=== PATIENT | male | born 1970 | race Caucasian/White ===

== ENCOUNTER 2016-07-20 01:18 | Emergency (ER) | payer BC ==
[~2016-07-20] VITALS: Ht 177.8 cm; Wt 86.4 kg
[2016-07-20 01:19] VITALS: TEMP 97.8
[2016-07-20] MEDS ORDERED: ZOFRAN8 MG PO (01:40)
[2016-07-20 01:55] LABS: ADJUSTED CALCIUM 8.9 mg/dL (8.4-10.2); ALBUMIN 4.2 gm/dL (3.5-5.0); BILIRUBIN,TOTAL 0.7 mg/dL (0.0-1.0); CALCIUM 9.1 mg/dL (8.4-10.2); CREATININE, serum 1.04 mg/dL (0.66-1.25); POTASSIUM 3.5 mmol/L (3.4-5.0); TOTAL PROTEIN 7.3 gm/dL (6.4-8.2)
[2016-07-20 03:05] LABS: PH 7 (5-8); SQUAMOUS EPITHELIAL None Seen /hpf; URINE APPEARANCE Cloudy; URINE BACTERIA None Seen /hpf; URINE BILIRUBIN Negative (NEGATIVE); URINE BLOOD Negative (NEGATIVE); URINE COLOR Yellow; URINE GLUCOSE Negative (NEGATIVE); URINE KETONE 1+ (NEGATIVE); URINE RBC 0-2 /hpf
[2016-07-20 03:06] LABS: URINE WBC 0-2 /hpf
[2016-07-20 03:50] VITALS: BP 141/84; PULSE 54
== END 2016-07-20 03:50 | disposition home or self-care (01) ==
LOC: COL.ER 01:18
PROVIDERS: Emergency Medicine
DX: R10.13 Epigastric pain (principal); R11.2 Nausea with vomiting, unspecified; R63.0 Anorexia
CPT/HCPCS: C9113; J1170; J1885; J2175; J2405; J7030

== ENCOUNTER 2016-07-23 05:21 | Observation (INO) | payer BC ==
[2016-07-23] VITALS (9 sets, daily range): BP systolic 119–132; BP diastolic 63–91; PULSE 57–83; TEMP 97–99
[~2016-07-23] VITALS: Ht 177.8 cm; Wt 84.5 kg
[~2016-07-23 05:21] MED LIST: ZOFRAN8 MG PO
[2016-07-23 06:08] LABS: BASO % 0.4 % (0.0-2.0); EOS # 0.2 (0.0-0.7); EOS % 2.2 % (0-4.0); GRAN # 5.9 (1.4-6.5); GRAN % 72.5 % (42.2-75.2); HEMATOCRIT 38.7 % (42.0-52.0); HEMOGLOBIN 12.9 g/dl (13.5-18.0); LYMPH # 1.3 (1.2-3.4); LYMPH % 15.7 % (20.0-51.0); MEAN CELL VOLUME 84 fl (80.0-100.0); MEAN CORPUSCULAR HEMOGLOBIN 28 pg (27.0-31.0); MEAN CORPUSCULAR HGB CONC 33 g/dl (33.0-37.0); MEAN PLATELET VOLUME 10.3 fl (7.4-10.4); MONO # 0.7 (0.1-0.6); MONO % 8.8 % (1.7-9.3); PLATELET COUNT 241 K/mm3 (130-400); RED BLOOD COUNT 4.63 M/mm3 (4.20-5.60); REDCELL DISTRIBUTION WIDTH-CV 12.7 % (11.5-14.5); WHITE BLOOD COUNT 8.2 K/mm3 (4.8-10.8)
[2016-07-23 06:21] LABS: ADJUSTED CALCIUM 8.7 mg/dL (8.4-10.2); ALBUMIN 3.8 gm/dL (3.5-5.0); BILIRUBIN,TOTAL 0.6 mg/dL (0.0-1.0); CALCIUM 8.5 mg/dL (8.4-10.2); CREATININE, serum 0.97 mg/dL (0.66-1.25)
[2016-07-23 06:53] LABS: PH 6 (5-8); SQUAMOUS EPITHELIAL None Seen /hpf; URINE APPEARANCE Clear; URINE BACTERIA None Seen /hpf; URINE BILIRUBIN Negative (NEGATIVE); URINE BLOOD Negative (NEGATIVE); URINE COLOR Yellow; URINE GLUCOSE Negative (NEGATIVE); URINE KETONE Negative (NEGATIVE); URINE RBC 0-2 /hpf; URINE WBC 0-2 /hpf
[2016-07-24 00:15] VITALS: BP 126/72; PULSE 82; TEMP 98.5
[2016-07-24 02:40] VITALS: BP 118/57; PULSE 69; TEMP 98.2
[2016-07-24 05:46] VITALS: BP 112/63; PULSE 73; TEMP 98.2
== END 2016-07-24 11:23 | disposition home or self-care (01) ==
LOC: COL.ER 05:21 → SURG 08:13
PROVIDERS: Emergency Medicine
DX: K81.0 Acute cholecystitis (principal); K42.9 Umbilical hernia without obstruction or gangrene; D64.9 Anemia, unspecified
CPT/HCPCS: G0378; J0360; J1100; J1170; J1200; J1956; J2405; J2704; J2710; J2765; J3010; J7030; Q9967

== ENCOUNTER 2016-10-16 08:31 | Inpatient (IN) | payer BC ==
[~2016-10-16] VITALS: Ht 175.3 cm; Wt 73.6 kg
[2016-10-23] VITALS (9 sets, daily range): BP systolic 109–134; BP diastolic 65–84; PULSE 70–93; TEMP 97.4–98.5
[2016-10-23] MEDS ORDERED: MULTI VITAMINS1 TAB PO (08:26)
[2016-10-23] MEDS ORDERED: ADVIL200 MG PO (08:27)
[2016-10-24 01:51] VITALS: BP 107/64; PULSE 85; TEMP 99.3
[2016-10-24 05:37] LABS: HEMOGLOBIN 9.5 g/dl (13.5-18.0)
[2016-10-24 05:41] LABS: CALCIUM 7.8 mg/dL (8.4-10.2); CREATININE, serum 1.08 mg/dL (0.66-1.25); POTASSIUM 3.9 mmol/L (3.4-5.0)
[2016-10-24 05:45] VITALS: BP 116/63; PULSE 80; TEMP 99.9
[2016-10-24 14:43] VITALS: BP 104/65; PULSE 80; TEMP 98.7
[2016-10-24 20:51] VITALS: BP 130/69; PULSE 93; TEMP 100
[2016-10-25 00:28] VITALS: BP 116/72; PULSE 102; TEMP 99.3
[2016-10-25 03:52] VITALS: BP 120/75; PULSE 87; TEMP 98.3
[2016-10-25 07:58] LABS: BASO % 0.2 % (0.0-2.0); GRAN # 10.2 (1.4-6.5); GRAN % 85.3 % (42.2-75.2); HEMATOCRIT 30.2 % (42.0-52.0); HEMOGLOBIN 9.6 g/dl (13.5-18.0); LYMPH # 0.9 (1.2-3.4); LYMPH % 7.7 % (20.0-51.0); MEAN CELL VOLUME 79 fl (80.0-100.0); MEAN CORPUSCULAR HEMOGLOBIN 25 pg (27.0-31.0); MEAN CORPUSCULAR HGB CONC 32 g/dl (33.0-37.0); MEAN PLATELET VOLUME 9.5 fl (7.4-10.4); MONO # 0.7 (0.1-0.6); PLATELET COUNT 310 K/mm3 (130-400); RED BLOOD COUNT 3.83 M/mm3 (4.20-5.60); REDCELL DISTRIBUTION WIDTH-CV 13.4 % (11.5-14.5); WHITE BLOOD COUNT 11.9 K/mm3 (4.8-10.8)
[2016-10-25 08:06] LABS: CREATININE, serum 0.94 mg/dL (0.66-1.25); POTASSIUM 4.1 mmol/L (3.4-5.0)
[2016-10-25 10:05] VITALS: BP 129/75; PULSE 85; TEMP 98.4
[2016-10-25 14:30] VITALS: BP 134/85; PULSE 84; TEMP 98.2
[2016-10-25 18:33] VITALS: BP 137/79; PULSE 87; TEMP 98.7
[2016-10-25 19:45] VITALS: BP 123/80; PULSE 82; TEMP 98.2
[2016-10-26] VITALS (7 sets, daily range): BP systolic 127–135; BP diastolic 77–88; PULSE 62–89; TEMP 97.8–98.3
[2016-10-27 01:46] VITALS: BP 118/74; PULSE 74; TEMP 98.1
[2016-10-27 05:38] VITALS: BP 121/86; PULSE 88; TEMP 98.4
[2016-10-27 05:38] LABS: BASO % 0.1 % (0.0-2.0); EOS # 0.1 (0.0-0.7); EOS % 0.8 % (0-4.0); GRAN # 9.1 (1.4-6.5); GRAN % 87.2 % (42.2-75.2); LYMPH # 0.7 (1.2-3.4); LYMPH % 6.6 % (20.0-51.0); MEAN CELL VOLUME 79 fl (80.0-100.0); MEAN CORPUSCULAR HGB CONC 32 g/dl (33.0-37.0); MEAN PLATELET VOLUME 9.9 fl (7.4-10.4); MONO # 0.5 (0.1-0.6); MONO % 4.7 % (1.7-9.3); PLATELET COUNT 344 K/mm3 (130-400); RED BLOOD COUNT 3.86 M/mm3 (4.20-5.60); REDCELL DISTRIBUTION WIDTH-CV 13.2 % (11.5-14.5); WHITE BLOOD COUNT 10.4 K/mm3 (4.8-10.8)
[2016-10-27 05:43] LABS: HEMATOCRIT 30.5 % (42.0-52.0); HEMOGLOBIN 9.6 g/dl (13.5-18.0); MEAN CORPUSCULAR HEMOGLOBIN 25 pg (27.0-31.0)
[2016-10-27 05:48] LABS: CALCIUM 8.3 mg/dL (8.4-10.2); CREATININE, serum 0.8 mg/dL (0.66-1.25); POTASSIUM 3.3 mmol/L (3.4-5.0)
[2016-10-27 09:29] VITALS: BP 134/86; PULSE 71; TEMP 98.5
[2016-10-27 14:01] VITALS: BP 125/77; PULSE 87; TEMP 98.2
[2016-10-27 17:28] VITALS: BP 134/84; PULSE 86; TEMP 98.6
[2016-10-27 22:21] VITALS: BP 130/85; PULSE 84; TEMP 98.7
[2016-10-28 01:53] VITALS: BP 115/65; PULSE 65; TEMP 98.4
[2016-10-28 04:58] VITALS: BP 133/81; PULSE 83; TEMP 98.1
[2016-10-28 09:34] VITALS: BP 135/80; PULSE 75; TEMP 98.3
[2016-10-28 12:14] LABS: ADJUSTED CALCIUM 9.4 mg/dL (8.4-10.2); ALBUMIN 2.8 gm/dL (3.5-5.0); BILIRUBIN,TOTAL 0.6 mg/dL (0.0-1.0); CALCIUM 8.4 mg/dL (8.4-10.2); CREATININE, serum 0.73 mg/dL (0.66-1.25); POTASSIUM 3.4 mmol/L (3.4-5.0); TOTAL PROTEIN 6.1 gm/dL (6.4-8.2)
[2016-10-28 13:38] VITALS: BP 142/88; PULSE 77; TEMP 98.2
[2016-10-28 17:53] VITALS: BP 135/87; PULSE 75; TEMP 98.2
[2016-10-28 22:33] VITALS: BP 144/88; PULSE 74; TEMP 98.6
[2016-10-29 02:15] VITALS: BP 135/89; PULSE 65; TEMP 98.2
[2016-10-29 06:49] LABS: CALCIUM 8.3 mg/dL (8.4-10.2); CREATININE, serum 0.7 mg/dL (0.66-1.25); MAGNESIUM 2.3 mg/dL (1.6-2.3); PHOSPHOROUS 3.4 mg/dL (2.5-4.5); POTASSIUM 3.6 mmol/L (3.4-5.0)
[2016-10-29 07:10] VITALS: BP 131/81; PULSE 72; TEMP 98.3
[2016-10-29 09:22] VITALS: BP 133/83; PULSE 75; TEMP 98.3
[2016-10-29 13:25] VITALS: BP 152/83; PULSE 67; TEMP 98
[2016-10-29 17:58] VITALS: BP 134/89; PULSE 85; TEMP 98.5
[2016-10-29 22:32] VITALS: BP 140/90; PULSE 70; TEMP 98.9
[2016-10-30 04:59] VITALS: BP 135/85; PULSE 70; TEMP 98.6
[2016-10-30 06:55] LABS: CALCIUM 8.2 mg/dL (8.4-10.2); CREATININE, serum 0.64 mg/dL (0.66-1.25); MAGNESIUM 2.4 mg/dL (1.6-2.3); PHOSPHOROUS 3.8 mg/dL (2.5-4.5); POTASSIUM 3.6 mmol/L (3.4-5.0)
[2016-10-30 09:17] VITALS: BP 135/85; PULSE 71; TEMP 98.2
[2016-10-30 13:41] VITALS: BP 130/83; PULSE 72; TEMP 98
[2016-10-30 18:00] VITALS: BP 127/77; PULSE 73; TEMP 98.8
[2016-10-30 22:00] VITALS: BP 136/82; PULSE 68; TEMP 98.4
[2016-10-31 04:56] VITALS: BP 139/81; PULSE 67
[2016-10-31 06:17] LABS: BASO % 0.4 % (0.0-2.0); EOS # 0.2 (0.0-0.7); EOS % 2.6 % (0-4.0); GRAN # 5.6 (1.4-6.5); GRAN % 77.7 % (42.2-75.2); LYMPH # 0.9 (1.2-3.4); LYMPH % 11.9 % (20.0-51.0); MEAN CELL VOLUME 78 fl (80.0-100.0); MEAN CORPUSCULAR HGB CONC 32 g/dl (33.0-37.0); MEAN PLATELET VOLUME 9.3 fl (7.4-10.4); MONO # 0.4 (0.1-0.6); MONO % 6.1 % (1.7-9.3); PLATELET COUNT 320 K/mm3 (130-400); RED BLOOD COUNT 3.65 M/mm3 (4.20-5.60); REDCELL DISTRIBUTION WIDTH-CV 13.7 % (11.5-14.5); WHITE BLOOD COUNT 7.2 K/mm3 (4.8-10.8)
[2016-10-31 06:19] LABS: HEMATOCRIT 28.5 % (42.0-52.0); MEAN CORPUSCULAR HEMOGLOBIN 25 pg (27.0-31.0)
[2016-10-31 06:33] LABS: ALBUMIN 2.8 gm/dL (3.5-5.0); CALCIUM 8.3 mg/dL (8.4-10.2); CREATININE, serum 0.61 mg/dL (0.66-1.25); MAGNESIUM 2.1 mg/dL (1.6-2.3); PHOSPHOROUS 4.1 mg/dL (2.5-4.5); POTASSIUM 3.6 mmol/L (3.4-5.0)
[2016-10-31 10:14] VITALS: BP 130/91; PULSE 79; TEMP 97.1
[2016-10-31 14:07] VITALS: BP 125/79; PULSE 86; TEMP 98.4
[2016-10-31 17:33] VITALS: BP 126/80; PULSE 77; TEMP 98.5
[2016-11-01 02:43] VITALS: BP 128/86; PULSE 67; TEMP 98.4
[2016-11-01 06:32] VITALS: BP 125/77; PULSE 70; TEMP 98.5
[2016-11-01 07:10] LABS: BASO % 0.3 % (0.0-2.0); EOS # 0.2 (0.0-0.7); EOS % 2.6 % (0-4.0); GRAN # 5.1 (1.4-6.5); GRAN % 72.2 % (42.2-75.2); LYMPH # 1.1 (1.2-3.4); LYMPH % 15.4 % (20.0-51.0); MEAN CELL VOLUME 79 fl (80.0-100.0); MEAN CORPUSCULAR HGB CONC 31 g/dl (33.0-37.0); MEAN PLATELET VOLUME 9.9 fl (7.4-10.4); MONO # 0.6 (0.1-0.6); MONO % 8.1 % (1.7-9.3); PLATELET COUNT 320 K/mm3 (130-400); RED BLOOD COUNT 3.58 M/mm3 (4.20-5.60); REDCELL DISTRIBUTION WIDTH-CV 13.6 % (11.5-14.5)
[2016-11-01 07:22] LABS: HEMATOCRIT 28.1 % (42.0-52.0); HEMOGLOBIN 8.8 g/dl (13.5-18.0); MEAN CORPUSCULAR HEMOGLOBIN 25 pg (27.0-31.0)
[2016-11-01 07:25] LABS: CALCIUM 8.4 mg/dL (8.4-10.2); CREATININE, serum 0.63 mg/dL (0.66-1.25); MAGNESIUM 1.9 mg/dL (1.6-2.3); PHOSPHOROUS 4.1 mg/dL (2.5-4.5)
[2016-11-01 09:53] VITALS: BP 129/81; PULSE 71; TEMP 97.3
[2016-11-01 13:52] VITALS: BP 137/99; PULSE 65; TEMP 97.4
[2016-11-01 16:46] VITALS: BP 147/84; PULSE 72; TEMP 97.7
[2016-11-01 22:25] VITALS: BP 119/75; PULSE 78; TEMP 98.4
[2016-11-02 06:09] VITALS: BP 128/74; PULSE 90; TEMP 98.5
[2016-11-02 06:35] LABS: CALCIUM 8.7 mg/dL (8.4-10.2); CREATININE, serum 0.64 mg/dL (0.66-1.25); MAGNESIUM 1.9 mg/dL (1.6-2.3); PHOSPHOROUS 3.9 mg/dL (2.5-4.5); POTASSIUM 4.4 mmol/L (3.4-5.0)
[2016-11-02 09:24] VITALS: BP 132/76; PULSE 85; TEMP 98.2
[2016-11-02 13:44] VITALS: BP 124/74; PULSE 72; TEMP 97.9
[2016-11-02 18:00] VITALS: BP 122/72; PULSE 74; TEMP 98.3
[2016-11-02 18:55] LABS: 12 HR URINE TOTAL VOLUME 0.9 L
[2016-11-02 22:09] VITALS: BP 122/75; PULSE 91; TEMP 97.4
[2016-11-03 02:29] VITALS: BP 110/56; PULSE 86; TEMP 98.9
[2016-11-03 04:42] VITALS: BP 117/65; PULSE 110; TEMP 98.9
[2016-11-03 09:42] VITALS: BP 118/73; PULSE 91; TEMP 98.3
[2016-11-03 14:47] VITALS: BP 116/72; PULSE 81; TEMP 99
[2016-11-03 18:08] VITALS: BP 122/68; PULSE 88; TEMP 99.3
[2016-11-03 22:00] VITALS: BP 127/69; PULSE 85; TEMP 97.8
[2016-11-04 01:39] VITALS: BP 125/80; PULSE 83; TEMP 98.1
[2016-11-04 05:04] VITALS: BP 128/79; PULSE 86; TEMP 98.1
[2016-11-04 09:36] LABS: BASO % 0.1 % (0.0-2.0); EOS # 0.1 (0.0-0.7); EOS % 1.5 % (0-4.0); GRAN # 6.2 (1.4-6.5); GRAN % 79.1 % (42.2-75.2); LYMPH % 12.3 % (20.0-51.0); MEAN CELL VOLUME 79 fl (80.0-100.0); MEAN CORPUSCULAR HGB CONC 32 g/dl (33.0-37.0); MEAN PLATELET VOLUME 10.2 fl (7.4-10.4); MONO # 0.5 (0.1-0.6); MONO % 6.2 % (1.7-9.3); PLATELET COUNT 322 K/mm3 (130-400); RED BLOOD COUNT 3.72 M/mm3 (4.20-5.60); REDCELL DISTRIBUTION WIDTH-CV 14.3 % (11.5-14.5); WHITE BLOOD COUNT 7.9 K/mm3 (4.8-10.8)
[2016-11-04 09:39] LABS: HEMATOCRIT 29.2 % (42.0-52.0); HEMOGLOBIN 9.2 g/dl (13.5-18.0); MEAN CORPUSCULAR HEMOGLOBIN 25 pg (27.0-31.0)
[2016-11-04 09:46] LABS: ADJUSTED CALCIUM 9.3 mg/dL (8.4-10.2); ALBUMIN 3.1 gm/dL (3.5-5.0); BILIRUBIN,TOTAL 0.4 mg/dL (0.0-1.0); CALCIUM 8.6 mg/dL (8.4-10.2); CREATININE, serum 0.7 mg/dL (0.66-1.25); PHOSPHOROUS 4.7 mg/dL (2.5-4.5); POTASSIUM 4.1 mmol/L (3.4-5.0); TOTAL PROTEIN 6.6 gm/dL (6.4-8.2)
[2016-11-04 10:29] VITALS: BP 125/78; PULSE 92; TEMP 98.8
[2016-11-04 14:15] VITALS: BP 118/78; PULSE 85; TEMP 98.2
== END 2016-11-04 16:45 | disposition home or self-care (01) | DRG 330 ==
LOC: INPTSU 10-23 08:04 → JCC 10-23 08:04 → SURG 10-23 11:00 → JCC 10-23 15:45
PROVIDERS: Surgery
PROC: 0DTP0ZZ Resection of Rectum, Open Approach (ICD-10-PCS; 2016-10-23)
PROC: 0D1N0Z4 Bypass Sigmoid Colon to Cutaneous, Open Approach (ICD-10-PCS; 2016-10-23)
PROC: 8E0W0CZ Robotic Assisted Procedure of Trunk Region, Open Approach (ICD-10-PCS; 2016-10-23)
PROC: 0DTN0ZZ Resection of Sigmoid Colon, Open Approach (ICD-10-PCS; principal; 2016-10-23 11:00)
DX: C19 Malignant neoplasm of rectosigmoid junction (principal); K56.7 Ileus, unspecified; E44.0 Moderate protein-calorie malnutrition; C77.2 Secondary and unspecified malignant neoplasm of intra-abdominal lymph nodes
CPT/HCPCS: A4315; A9284; B4178; C1751; J0610; J1100; J1170; J1644; J1650; J1885; J2270; J2405; J2543; J2710; J2765; J2795; J3010; J3475; J3480; J7042; J7050; J7120; J7131

== ENCOUNTER → 2017-11-11 | Outpatient (CLI) | payer BC ==
[~2017-11-11] MED LIST changes: +ADVIL200 MG PO; +MULTI VITAMINS1 TAB PO
== END ==
LOC: COL.RAD 11:00
DX: K76.89 Other specified diseases of liver (principal); C20 Malignant neoplasm of rectum; Z95.828 Presence of other vascular implants and grafts; Z93.3 Colostomy status; Z90.49 Acquired absence of other specified parts of digestive tract; Z90.89 Acquired absence of other organs
CPT/HCPCS: Q9967

== ENCOUNTER → 2018-10-14 | Outpatient (CLI) | payer BC | LOC: COL.RAD 08:30 | DX: C19 Malignant neoplasm of rectosigmoid junction (principal); R16.1 Splenomegaly, not elsewhere classified; Z95.9 Presence of cardiac and vascular implant and graft, unspecified; Z90.49 Acquired absence of other specified parts of digestive tract | CPT/HCPCS: Q9967 ==

== ENCOUNTER → 2019-08-09 | Outpatient (CLI) | payer BC | LOC: COL.RAD 11:44 | DX: C19 Malignant neoplasm of rectosigmoid junction (principal); Z92.3 Personal history of irradiation; N19 Unspecified kidney failure; N13.30 Unspecified hydronephrosis ==

== ENCOUNTER 2019-11-02 11:54 | Day surgery (SDC) | payer BC ==
[~2019-11-02] VITALS: Ht 175.3 cm; Wt 90.5 kg
[2019-11-02 12:41] VITALS: BP 157/101; PULSE 88; TEMP 98.6
[2019-11-02 15:41] VITALS: TEMP 97.9
[2019-11-02 15:47] VITALS: BP 139/85; PULSE 76
[2019-11-02 16:02] VITALS: BP 154/83; PULSE 81
[2019-11-02 16:17] VITALS: BP 152/83; PULSE 80
== END 2019-11-02 16:45 | disposition home or self-care (01) ==
LOC: SDCO 11:54
DX: N13.1 Hydronephrosis with ureteral stricture, not elsewhere classified (principal); Z20.828 Contact with and (suspected) exposure to other viral communicable diseases; Z85.038 Personal history of other malignant neoplasm of large intestine; Z92.3 Personal history of irradiation
CPT/HCPCS: C1769; J0360; J0690; J1885; J2405; J2704; J3010; J7120; Q9967

== ENCOUNTER → 2019-11-10 | Outpatient (CLI) | payer BC ==
[2019-11-10] VITALS (16 sets, daily range): BP systolic 139–172; BP diastolic 93–117; PULSE 59–72
[~2019-11-10] VITALS: Ht 175.3 cm; Wt 94.0 kg
--- NOTE | 2019-11-10 09:55 | NUR ---
DR DE LA GARZA IN ROOM, PROCEDURE STARTED AFTER TIME OUT
--- NOTE | 2019-11-10 10:05 | NUR ---
FENTANYL 50MCG IV GIVEN OVER 2 MIN. THEN VERSED 1MG IV GIVEN BEFORE PROCEDURE PER DR DE LA GARZA
--- NOTE | 2019-11-10 10:30 | NUR ---
REPEATED FENTANYL 25MCG IV PER DR DE LA GARZA FOR PAIN, PROCEDURE CON'T
--- NOTE | 2019-11-10 10:55 | NUR ---
PROCEDURE CON'T PLACING NEPH TUBE, PT TOLERATING WELL, REPEATED VERSED 1MG IV AND FENTANYL BEFORE NEPH TUBE THREADED THEN SUTURED.
--- NOTE | 2019-11-10 11:20 | NUR ---
PROCEDURE COMPLETED AND DRESSING APPLIED. DRAINAGE BAG APPLIED WITH SCANT AMT OF LIGHT RED TINGE URINE. PT UP IN W/C
== END ==
LOC: COL.RAD 08:53
DX: N13.1 Hydronephrosis with ureteral stricture, not elsewhere classified (principal)
CPT/HCPCS: C1729; C1894; J2250; J3010

== ENCOUNTER → 2020-04-12 | Outpatient (CLI) | payer BC | LOC: COL.RAD 12:09 | DX: N13.5 Crossing vessel and stricture of ureter without hydronephrosis (principal) | CPT/HCPCS: A9562; J1940 ==

== ENCOUNTER 2020-11-01 08:32 | Outpatient (CLI) | payer BC ==
[2020-11-01] VITALS (7 sets, daily range): BP systolic 120–141; BP diastolic 78–89; PULSE 82–92; TEMP 98.2
== END 2020-11-01 11:37 | disposition home or self-care (01) ==
LOC: EUO 08:32
DX: J02.9 Acute pharyngitis, unspecified (principal)
CPT/HCPCS: Q0244

== ENCOUNTER → 2021-09-02 | Outpatient (CLI) | payer BC | LOC: COL.RAD 07:18 | DX: M25.361 Other instability, right knee (principal) ==

== ENCOUNTER → 2023-09-27 | Outpatient (CLI) | payer BC ==
[~2023-09-27] MED LIST changes: +Iohexol 300 - 100 ML VIAL IV ONE; +NS 100 ML IV SCH; +PRILOSEC 20MG20 MG PO
== END ==
LOC: COL.RAD 06:53
DX: C20 Malignant neoplasm of rectum (principal)
CPT/HCPCS: Q9967